=== PATIENT | female | born 1970 | race Caucasian/White ===

== ENCOUNTER 2016-05-07 08:57 | Outpatient (CLI) | payer OTHER ==
[~2016-05-07 08:57] MED LIST: ALEVE220 MG PO; IBUPROFEN600 MG PO; INDOMETHACIN25 MG PO; NEURONTIN300 MG PO; VENLAFAXINE HC100 MG PO
--- NOTE | 2016-05-07 09:54 | DIAGNOSTIC IMAGING REPORT ---
PROCEDURE: XR CHEST 2 VIEW INDICATION: Cough, initial encounter TECHNIQUE: PA and lateral view. COMPARISON: None. FINDINGS: Lungs are clear. Cardiovascular structures are normal. Mild dextroconvex scoliosis with moderate degenerative changes. IMPRESSION: 1. Negative chest.
--- OUTSIDE RECORDS SUMMARY | 2016-05-08 13:02 | External Medical Summary Rpt | CCD ---
Author Author Monique RICK, Luís Harvey Organization Unknown Address Unknown Phone Unavailable Care Team Providers Care Building Construction Inspector Name Role Phone Christie Adams PCP Unavailable Christie Adams Unavailable Unavailable Allergies, Adverse Reactions, Alerts Substance Reaction Severity Status Substance Type Unknown Medications Medicatio Instructi Dosage Effective Status Comments n ons Dates (start - stop) No Drug Therapy Prescribed Problems Condition Effective Dates Clinical Status (start - stop) Impingement syndrome of left shoulder Procedures Procedure Date Pre Op Visit Results Test Date Measure Units Referen Abnorma Comment Name and ce l Flag s Time Range Unknown Advance Directives Directive Yes / No Effective Date File Name Unknown Encounters Encoun Practi Locati Reason Diagno Date Provid Care ter ce on (s) [facility] er Team Descri For Member ption Visit s [facility] LT Imping Jalen Referr e e Should ement -2016 r [facility] er Pre syndro Stephe Provid Op me of n. 328 er: Clinic Orthop (chief left S Christie s, [address]abiera Yaw S compla er [address] CORINA, Dewayne int) h [address], [address], [facility], [facility], [facility], [facility], [address]. [place], [place], [place], [address] tel:[phone] tel:+[phone] tel:[phone] Family History Family Member Diagnosis Age At Onset Status Unknown Immunizations Vaccine Date Status Comments Unknown Payers Payer name Insurance type Covered green party Authorization(s ID ) [facility] [id number] Care Healthy Options Social History Type Description Quantity Date Captured Alcohol Use No Details Caffeine Use energy drinks 2 cups per day Details Tobacco Use Occasional Status cigarette smoker Smoking Status Current some day smoker Vital Signs Alfredito Hei Elmer BMI Pul Blo Tem Res Bod Hea BMI e / ght ght se od per pir y d Rat Pre atu mary jo Heather Cir per Smith e ssu re ry fac cum latonya e: re Rat e bonny til e Are enc e a e Apr 61. 297 56. 68 118 -12 00 .00 12 /mi /72 -20 in kg/ n 17/ lbs met mm[ 08: er( Hg] 24: 2) 00 Chief Complaint And Reason For Visit Most recent encounter only, dated '05/07/2016 08:10'. LT Shoulder Pre Op (chief complaint) Reason For Referral Reason For Referral surgery Plan Of Care Date Type Action Status Appointment ARELY Del Angel LT [facility]/ RC Appointment REUBEN Del AngelED Bere LT [facility]/ RC Date Type Problem Goal Interve Status Start ntion Date Unknown. History Of Present Illness Encounter Date Complaint History Of Present Illness LT Shoulder Pre Op Functional Status Encounter Date Functional Assessment Cognitive Assessment Unknown Medications Administered Medicatio Instructi Dosage Effective Status Comments n ons Dates (start - stop) No Drug Therapy Prescribed Instructions Date Instruction Additional Information Unknown
--- OUTSIDE RECORDS SUMMARY | 2016-05-08 13:02 | External Medical Summary Rpt | CCD ---
Author Author Monique RICK, Luís Harvey Organization Unknown Address Unknown Phone Unavailable Care Team Providers Care Kettle Fry Cook Operator Name Role Phone Christie Adams PCP Unavailable [...] Date Provid Care ter ce on (s) [facility] er Team Descri For Member ption Visit s [facility] LT Imping Jalen Referr e e Should ement -2016 r [facility] er Pre syndro Stephe Provid Op me of n. 328 er: Clinic Orthop (chief left S Christie s, [address] should Jabiera Yaw S compla er guamis CORINA, Dewayne int) h [address], [address], [facility], [facility], [facility], [facility], [address]. [place], [place], [place], [address] tel:[phone] tel:[phone] tel:[phone] Family History Family Member Diagnosis Age At Onset Status Unknown Immunizations Vaccine Date Status Comments Unknown Payers Payer name Insurance type Covered green party Authorization(s ID ) [facility] [id number] Care Healthy Options Social History Type Description [...]
== END 2016-05-07 23:00 | disposition home or self-care (01) ==
LOC: RT SRH 08:57 → LAB SRH 08:57 → RT SRH 09:00
DX: Z01.810 Encounter for preprocedural cardiovascular examination (principal); Z01.811 Encounter for preprocedural respiratory examination; Z01.812 Encounter for preprocedural laboratory examination; M19.012 Primary osteoarthritis, left shoulder
CPT/HCPCS: 90004; 90074; 90100; 95059

== ENCOUNTER 2016-05-12 08:10 | Day surgery (SDC) | payer OTHER ==
--- NOTE | 2016-05-07 09:15 | HISTORY AND PHYSICAL ---
ADMITTED: 05/12/2016 CHIEF COMPLAINT: 1. Left shoulder pain. HISTORY OF PRESENT ILLNESS: The patient has had chronic pain in her shoulder for a number of years. She had previous surgery on both shoulders with good result on the right, but has had recurrence of her pain on the left side and has a rotator cuff tear and is being admitted for repair of the rotator cuff tear, left shoulder arthroscopy and also she has some arthritis at her distal clavicle and we are planning for a distal clavicle resection. She had the nature of the surgery, where the incisions would be, what bone would be removed, how we would do the repair all explained to her today. I explained the risk of failure, infection, of problems with healing, of stiffness and pain, anesthesia complications to her, and she understands and accepts and would like to proceed with the surgery. I also counseled her, she is a smoker, that all those complications are more likely if she smokes and if she could quit, that would certainly be to her advantage and she understands that as well. MEDICAL/SURGICAL HISTORY: Her past history is positive, she suffers from bipolar disorder. She has also had hepatitis and has depression and anxiety as well. She has had previous surgery for both shoulders and she has also had a tumor removed from her breast. The patient lists no current medication. She did have an abscess along the left chest wall when I saw her previously and she had been given Bactrim-DS to take and she has completed a course of the antibiotics for a week and that problem has now resolved. MEDICATIONS: 1. ALLERGIES: 1. SOCIAL HISTORY: Positive as noted above that she is a smoker and she has been counseled on stopping smoking. FAMILY HISTORY: Noncontributory, although she does have a family history of colon cancer, but it should not affect us with the current surgery. REVIEW OF SYSTEMS: Other than the shoulder is negative and she has not had any cough, congestion, fever, chills, chest pain, shortness of breath, nausea, vomiting, diarrhea or dysuria and has no other musculoskeletal complaints at this time. PHYSICAL EXAMINATION: VITAL SIGNS: Her blood pressure to be 118/72, pulse is 68, her BMI is 56, and she is 297 pounds, height is 61 inches HEENT: Shows her head to be normocephalic, atraumatic. Eyes are clear. Hearing is grossly normal. GENERAL: She is alert and oriented x3. HEAD AND NECK: She has no jugular venous distention. The face is symmetrical and the mouth likewise. CHEST: Symmetrical. HEART: Regular rate and rhythm without murmur. LUNGS: Clear to auscultation. ABDOMEN: Obese. EXTREMITIES: Shoulder exam, will refer to my previous exam but she does have very limited active forward flexion and abduction to 80 degrees only and with some assistance and passive pressure, I can get her up to only 90 degrees in both directions and there is pain at the anterolateral acromion as well as over the AC joint. LAB/IMAGING: The studies have shown her to have a rotator cuff tear as well as some acromioclavicular arthritis and a spur at the anterior margin of the acromion. IMPRESSION: 1. A rotator cuff tear with acromioclavicular arthritis and impingement of the shoulder. PLAN: Will be for surgery as noted above and we will do that next week barring unforeseen complication or problem.
[~2016-05-12] VITALS: Ht 154.9 cm; Wt 136.1 kg
--- NOTE | 2016-05-12 13:28 | Postoperative Progress Note ---
Postop Progress Note Preoperate Diagnosis: RCT, AC arthritis left shoulder Postoperative Diagnosis: Same + labral tear Surgeon: linda Anesthesia: General ETT Findings: Labral tear, AC arthritis, RCT left shoulder Procedure: Left shoulder scope with superior labral debridement and repair. Open distal clavicle resection and repair of RCT with acromioplasty. Complications? No Condition: Stable EBL: <100cc Blood Administered: 0 Specimen(s) removed? Yes Specimen removed/disposition: Distal clavicle and anterolateral acromion. Grafts or Implants? Yes Graft/Implant type: Anchors left shoulder . (See nursing notes for details of grafts/implants)
[2016-05-12] MEDS ORDERED: OXAYDO5 MG PO (13:41)
--- NOTE | 2016-05-12 13:42 | Provider's Discharge Care Plan ---
Problem, Goal, Plan Problem List 1. Rotator cuff (capsule) sprain
--- NOTE | 2016-05-12 13:42 | Provider's Discharge Care Plan ---
Problem, Goal, Plan Problem List 1. Rotator cuff (capsule) sprain
[2016-05-12] MEDS ORDERED: ZOFRAN ODT4 MG PO (14:26)
--- NOTE | 2016-05-12 15:41 | DIAGNOSTIC IMAGING REPORT ---
PROCEDURE: XR SHOULDER 2 OR MORE VW-LEFT INDICATION: Post op TECHNIQUE: Three views. COMPARISON: Left shoulder x-ray 07/10/2015 FINDINGS: Interval resection of the distal left clavicle with soft tissue postsurgical changes superior to the AC joint. Single orthopedic anchor projects from the humeral head with three additional anchors projecting over the glenoid. No fracture dislocation. IMPRESSION: 1. Normal left shoulder postsurgical changes
[2016-05-12 16:21] VITALS: BP 135/78
--- NOTE | 2016-05-12 16:40 | OPERATIVE REPORT ---
DATE OF SURGERY: 05/12/2016 SURGEON: AMARJIT TAMAYO MD PREOPERATIVE DIAGNOSES: 1. Partial rotator cuff tear 2. Possible labral tear 3. Acromioclavicular arthritis of the left shoulder POSTOPERATIVE DIAGNOSES: 1. Rotator cuff tear 2. Labral tear 3. Acromioclavicular arthritis of the left shoulder PROCEDURES PERFORMED: 1. Operation proposed is left shoulder arthroscopy, probable open repair of the rotator cuff and distal clavicle resection, acromioplasty, and the operation performed was left shoulder arthroscopy 2. Debridement 3. Labral repair 4. Open acromioplasty 5. Distal clavicle resection 6. Repair of rotator cuff tear ESTIMATED BLOOD LOSS: Less than 100 mL, probably closer to 50 mL. COMPLICATIONS: None. PATHOLOGY SPECIMEN: None. CONDITION: The patient arrived in the recovery room in stable condition. SURGICAL TECHNIQUE: The patient was taken to the operating room. She was given a general anesthetic. She was placed in a semi-sitting position on the operating table with the back support, and the arm and shoulder were prepped and draped in the usual sterile fashion. We then made a small incision posteriorly, put the scope into the joint , and visualized the joint. You could see immediately that she had a fairly large tear of the superior labrum, extending from about the 1 o'clock position posterosuperiorly, around to the 10 o'clock position, more anterosuperiorly. That was debrided along the margins. The articular surfaces were actually in good condition. The biceps tendon was in good condition. Otherwise, the joint looked good, other than she had some fraying of the rotator cuff insertion that could be seen. So we debrided the margins of the glenoid and the labrum, put in 2 anchors, 3.5 mm diameter screw-in anchors. I had to put a third one in later anteriorly, but I put one just directly superiorly and another 1 anterosuperiorly, threaded the limbs of the sutures through the labrum and tied them down. With this, we had a good secure repair. I did just a little bit further debridement and then moved the scope out and made an open incision superiorly, carried down through subcutaneous tissue. We split the deltoid in line with its fibers from a point about 2 cm lateral to the lateral edge of the acromion, maybe 1.5 cm but no more than 2 cm, and then extending medially over the AC joint. We exposed the distal clavicle, resected 1 cm of bone from the distal clavicle slightly obliquely, leaving more bone superiorly than inferiorly, and then rounding and smoothing the margins with a rongeur. I then did an acromioplasty, removing the anteroinferior aspect of the anterolateral acromion, and then using a rasp to smooth the undersurface of the acromion and expose the rotator cuff. She had just a small, maybe 2 to 3 mm area of full-thickness defect, but there was a large area, about 2 cm in diameter, near the insertion of the anterior portion of the supraspinatus that was all frayed and hamburgered. So I put 5.5 mm suture anchor in the greater tuberosity, brought out the sutures through the rotator cuff, and needed to repair and tied down the rotator cuff attachment. We then tied the deltoid back to the acromion through bone, using the same suture, and then oversewed with the same suture the deltoid defect. We then closed that major incision with 2-0 Vicryl running subcutaneous suture, 3-0 Vicryl running subcuticular suture, and then closed the arthroscopy incision just with simple interrupted 3- 0 Vicryl subcuticular sutures. She was injected into the subacromial space with about 25 to 30 mL of 0.5% Marcaine, dressed with Xeroform and ABD pads. These were taped securely in place. She was placed in an arm sling and awakened, moved onto the [place] and taken to the recovery room. She is in stable condition.
== END 2016-05-12 16:33 | disposition home or self-care (01) ==
LOC: OR SRH 08:10 → SCU SRH 08:12 → OR SRH 09:45
PROVIDERS: Orthopaedic Surgery
PROC: 0RBK4ZZ Excision of Left Shoulder Joint, Percutaneous Endoscopic Approach (ICD-10-PCS; principal; 2016-05-12 09:45)
PROC: 0MM24ZZ Reattachment of Left Shoulder Bursa and Ligament, Percutaneous Endoscopic Approach (ICD-10-PCS; principal; 2016-05-12 09:45)
PROC: 0LM20ZZ Reattachment of Left Shoulder Tendon, Open Approach (ICD-10-PCS; principal; 2016-05-12 09:45)
DX: M75.122 Complete rotator cuff tear or rupture of left shoulder, not specified as traumatic (principal); S43.432A Superior glenoid labrum lesion of left shoulder, initial encounter; M13.812 Other specified arthritis, left shoulder; Z72.0 Tobacco use

== ENCOUNTER 2016-06-11 11:27 | Outpatient (CLI) | payer OTHER ==
[~2016-06-11 11:27] MED LIST changes: +OXAYDO5 MG PO; +ZOFRAN ODT4 MG PO
--- NOTE | 2016-06-11 14:34 | DIAGNOSTIC IMAGING REPORT ---
PROCEDURE: XR SHOULDER ARTHROGRAM - LEFT INDICATION: Acute left shoulder pain after re-injury. Recent of rotator cuff repair and labral surgery TECHNIQUE: The patient was advised of the usual risks and complications including infection, bleeding and allergy. Supine LPO position. Following sterile preparation and 1% lidocaine anesthetic, fluoroscopic guidance (4.3 minutes, 1962.44 mGy) was utilized to place a long 22-gauge spinal needle into the ventral left glenohumeral joint (after some difficulty). A 10 mL solution (2.5 mL Isovue 200, 2.5 mL 1% lidocaine, 2.5 mL 0.5% Marcaine, 2.5 mL normal saline) was infused, followed by 1.5 mL 40 mg/mL Kenalog. The needle was withdrawn. COMPARISON: Comparison is made radiographs of the left shoulder on 05/12/2016. FINDINGS: Seven AP views in neutral, internal and external rotation. Confirmation of intraarticular injection. Status post resection of the distal clavicle and acromioclavicular joint. There are three metal surgical anchors in the anterior superior labrum with a solitary metal screw in the lateral humeral head. Arthrogram demonstrates a complete rotator cuff tear with extravasation in the subacromial/subdeltoid bursa. The patient tolerated the procedure reasonably well with moderate discomfort (resolved spontaneously). The patient was transferred to CT in satisfactory condition with instructions to resume routine activity the following day, and to call for any untoward symptoms (increasing pain/swelling). IMPRESSION: 1. Successful fluoroscopically guided diagnostic/therapeutic injection/arthrogram of the left glenohumeral joint (pre CT arthrography). 2. Postoperative changes of the left shoulder (resection of distal clavicle, metal anchors in glenoid and left humeral head). 3. Recurrent full-thickness left rotator cuff tear. 4. CT arthrography is pending.
--- NOTE | 2016-06-11 14:58 | DIAGNOSTIC IMAGING REPORT ---
PROCEDURE: CT UPPER EXT W/CONTRAST- LEFT INDICATION: Left shoulder pain after fall. Recent rotator cuff repair and labral surgery. TECHNIQUE: Intra-articular radiographic contrast injected earlier in the day. Facet noncontrast axial images with sagittal oblique and coronal oblique re-formations. COMPARISON: Comparison is made to conventional arthrogram earlier in the day (06/11/2016) and MR arthrogram of the left shoulder on 12/25/2015. FINDINGS: Status post acromioplasty and resection of the distal left clavicle and acromioclavicular joint. Status post rotator cuff repair (metal surgical anchor in the lateral humeral head. There is moderate generalized thickening and edema of the rotator cuff. In addition, there is a 10 mm full-thickness rotator cuff tear of the ventral rotator cuff associated with moderate fluid the subacromial/subdeltoid bursa. There is moderate coracoid impingement (6 mm). There are postoperative changes with three metal surgical anchors in the anterior superior osseous labrum. Allowing for mild metal artifact there is no evidence of recurrent labral tear. IMPRESSION: 1. Status post acromioplasty and resection of left distal clavicle. 2. Prior rotator cuff repair (metal surgical anchor). 3. Moderate thickening of the rotator cuff consistent with tendinosis or postoperative changes. In addition, there is a 10 mm full-thickness tear of the ventral rotator cuff with extravasation into the subacromial/subdeltoid bursa. 4. Status post left glenoid labral repair (three metal surgical anchors). No evidence of recurrent labral tear.
== END 2016-06-11 23:00 ==
LOC: XR SRH 11:27
PROC: BP0 Imaging, Non-Axial Upper Bones, Plain Radiography (ICD-10-PCS; principal; 2016-06-11)
DX: M75.42 Impingement syndrome of left shoulder (principal); M75.52 Bursitis of left shoulder; Z98.890 Other specified postprocedural states

== ENCOUNTER 2016-08-06 16:18 | Outpatient (CLI) | payer OTHER ==
--- NOTE | 2016-08-06 17:16 | DIAGNOSTIC IMAGING REPORT ---
PROCEDURE: XR CHEST 2 VIEW INDICATION: Preop left rotator cuff surgery. TECHNIQUE: PA and lateral views. COMPARISON: Compared to chest x-ray on 05/07/2016. FINDINGS: There is interim surgery of the left shoulder with two metal surgical anchors in the glenoid, and a single metal surgical anchor in the humeral head. There is moderate caudal subluxation of the left glenohumeral joint. Lungs are clear. Heart and mediastinum are normal. There is a mild dextroscoliosis and moderate degenerative changes of the thoracic spine. IMPRESSION: 1. Interim postoperative changes of the left shoulder. 2. Moderate caudal subluxation of the left glenohumeral joint. 3. Mild dextroscoliosis and moderate degenerative change of the thoracic spine. 4. Otherwise negative chest.
== END 2016-08-06 23:00 ==
LOC: XR SRH 16:18
DX: Z01.818 Encounter for other preprocedural examination (principal); Z01.812 Encounter for preprocedural laboratory examination; S43.002A Unspecified subluxation of left shoulder joint, initial encounter; M47.814 Spondylosis without myelopathy or radiculopathy, thoracic region
CPT/HCPCS: 90004; 90074; 90100; 95059

== ENCOUNTER 2016-08-11 08:11 | Day surgery (SDC) | payer OTHER ==
--- NOTE | 2016-08-06 09:14 | HISTORY AND PHYSICAL ---
ADMITTED: 08/11/2016 CHIEF COMPLAINT: 1. Left shoulder pain. HISTORY OF PRESENT ILLNESS: The patient has had chronic pain in her left shoulder and underwent repair of a rotator cuff tear earlier this year and then unfortunately , she went out shopping, she was doing very well afterwards. Went out shopping, saw someone that was falling, kindly went to try and catch them and unfortunately in the process of catching them, the patient tore out the repair of her rotator cuff and so is back for repeat repair of a recurrent tear of the left rotator cuff. She has had the procedure explained to her in the clearest possible detail and understands risks and benefits including infection, possibility of failure, stiffness, pain and weakness, anesthesia complications and would like to proceed. We will plan to do the surgery then next week barring unforeseen complication or problem. MEDICAL/SURGICAL HISTORY: Positive for bipolar disorder, hepatitis, depression, anxiety. She has had previous surgery for removal of a tumor from her breast and also surgery on both of her shoulders. She had a small spontaneous abscess on the left chest wall, which was treated with Bactrim recently. MEDICATIONS: 1. At present are [place] --------, which she takes on a p.r.n. basis for pain. ALLERGIES: 1. CODEINE. SOCIAL HISTORY: Positive in that she is a smoker. FAMILY HISTORY: Positive for colon cancer, but no history of bleeding disorders or anesthesia complications. REVIEW OF SYSTEMS: Negative. She did have a mild upper respiratory infections she says recently but it passed quickly and currently she is not having any fever, chills , cough, congestion, nausea, vomiting, diarrhea, fainting spells or other problems other than the left shoulder pain. PHYSICAL EXAMINATION: VITAL SIGNS: In the clinic today were height of 61 inches, weight 304 pounds, BMI of 57.4, blood pressure 150/95, pulse 106, respiration of 18, and temperature of 98.4. HEENT: Head normocephalic and atraumatic. Her eyes are clear. Her hearing is grossly normal and she has no drainage from the ear canals. Her face is symmetrical. NECK: Without jugular venous distention. HEART: Regular rate and rhythm without murmur. LUNGS: Clear to auscultation. ABDOMEN: Obese. EXTREMITIES: The left shoulder exam, I will refer you to my previous exams but she has a nicely healed surgical scar superiorly over the shoulder from anterior to posterior and her studies show her to have a failure of the repair of her rotator cuff. IMPRESSION: Recurrent tear of the left rotator cuff. PLAN: For repair of the same.
[~2016-08-11] VITALS: Ht 154.9 cm; Wt 139.6 kg
[2016-08-11] MEDS ORDERED: NORCO1 TA1 PO (08:32)
--- NOTE | 2016-08-11 08:48 | NUR ---
PRE OP INSTRUCTIONS GIVEN AND SAFETY ISSUES DISCUSSED PT HAD QUESTIONS ANSWERED PT CONFIRMED PROCEDURE PT VERIFIED SIGNATURE PT MARKED SITE PT RESTING WANTING TO TAKE A NAP
[2016-08-11] MEDS ORDERED: NORCO1 TAB PO (12:32)
--- NOTE | 2016-08-11 12:34 | Provider's Discharge Care Plan ---
Problem, Goal, Plan Problem List 1. Rotator cuff (capsule) sprain
--- NOTE | 2016-08-11 12:34 | Provider's Discharge Care Plan ---
Problem, Goal, Plan Problem List 1. Rotator cuff (capsule) sprain
--- NOTE | 2016-08-11 12:34 | NUR ---
PT TRANSPORTED TO PACU, REPORT GIVEN TO PACU NURSE. SLING APPLIED AT END OF SURGERY BY SURGEON. LEFT ARM ON PILLOW. PT TRANSPORTED WITH 8L 02 VIA MASK. SD
--- NOTE | 2016-08-11 12:42 | Postoperative Progress Note ---
Postop Progress Note Preoperate Diagnosis: recurrent tear of the left rotator cuff Postoperative Diagnosis: same Surgeon: Luís Amaya MD Anesthesia: General ETT ( Gen. ETT) Findings: Recurrent tear of the left rotator cuff Procedure: Repair of the tear of the left rotator cuff Complications? No Condition: Stable EBL: 100 cc Blood Administered: 0 Specimen(s) removed? No Grafts or Implants? Yes Graft/Implant type: 5.5 mm suture anchor . (See nursing notes for details of grafts/implants)
--- NOTE | 2016-08-11 12:46 | NUR ---
rec'd from OR; SPONT RESP. HOB ELEVATED 30 DEGREES. LT ARM SLING AND ICE ON. CMS=GOOD.
--- NOTE | 2016-08-11 12:57 | Operative Report ---
Operative Report Date of Surgery: 08-11-16 Preoperate Diagnosis: Recurrent tear left rotator cuff Postoperative Diagnosis: same Surgeon: Luís Amaya MD Procedure Performed: Repair of left rotator cuff tear Surgical Technique: This is Juan Amaya dictating the operative report for Bere Del Angel. The preoperative diagnosis is recurrent tear of left rotator cuff postoperative diagnosis is the same. Surgery proposed was open repair of left rotator cuff tear operation performed the same. Operative procedure. The patient was taken to the operating room where she was given a general anesthetic. She was placed in semisitting beach chair position on the operating table in the left arm was prepped and draped in usual sterile fashion.. The same anterior posterior superior incision over the left shoulder was made and later was extended a centimeter posteriorly and another 2 cm anteriorly. The incision was carried down to subcutaneous tissue and then the deltoid muscle was split in line with its fibers at the anterior margin of the acromion starting at the medial edge of the acromion and extending laterally to a point half centimeters lateral to the lateral margin of the acromion. The rotator cuff was inspected and there was found to be a ragged tear at the anterior margin of the supraspinatus tendon as was expected from her preoperative CT arthrogram. The margins of the rotator cuff were released sharply with a curet was used to roughen the surface of the bone and to remove a small prominence that was there. Then another 5.5 mm suture anchor was placed into the bone and the limbs of the suture were routed through the tendon anterior and posterior using a Adan-Shahzad type grasping sutures. The repair was then oversewn with the same FiberWire suture from the anchors and a very nice secure repair was obtained. The deltoid muscle was then repaired with [id number] FiberWire suture, and then oversewn with #1 Polysorb suture. The subcutaneous layer was closed with 2-0 Vicryl running suture and the skin with subcuticular 3-0 Vicryl running suture. She was injected with a small quantity of half percent bupivacaine and then dressed with Xeroform and ABD pads. The dressing was secured in place with paper tape and she was placed in an arm sling and awakened and taken to recovery room in stable condition. The estimated blood loss was 100 cc. Complications were none. Specimens sent to lab were none as well.
--- NOTE | 2016-08-11 12:57 | NUR ---
FENTANYL GIVEN AND PT CONTINUES TO REPORT 8/10 OP SITE PAIN.
--- NOTE | 2016-08-11 13:08 | NUR ---
HERE TO TALK TO PT RE FINDINGS. ASKING IF SHE CAN STRAIGHTEN HER LT ARM. HE SAID YES. PAIN LEVEL IS NOW 4/10.
[2016-08-11] MEDS ORDERED: OXAYDO5 MG PO (13:14)
--- NOTE | 2016-08-11 13:17 | NUR ---
REPORTS PAIN TO BE 3-4/10. SMILING AND MAKING JOKES. XRAY HERE FOR POST OP PICS.
--- NOTE | 2016-08-11 13:24 | NUR ---
ASKING IF SHE CAN TAKE A NAP; PAIN LEVEL 3/10; DB INSTRUCTED.SLING AND ICE INSITU.
--- NOTE | 2016-08-11 14:06 | DIAGNOSTIC IMAGING REPORT ---
PROCEDURE: XR SHOULDER 2 OR MORE VW-LEFT INDICATION: Post op TECHNIQUE: Four views COMPARISON: Left shoulder x-ray 05/12/2016. FINDINGS: Interval placement of an additional screw projecting over the humeral head. There are two screws overlying the humeral head and 3 screws overlying the glenoid. Resection of the distal left clavicle. Overlying soft tissue surgical changes. No fracture or dislocation. IMPRESSION: 1. Left shoulder postsurgical changes.
--- NOTE | 2016-08-11 14:06 | NUR ---
PT RETURNED FROM PACU LEFT ARM IN SLING ICE TO SHOULDER DRESSING DRY AND INTACT PT UP TO BR VOIDED SPONTANOUSLY STATED SHOULDER DOESN'T HURT VERY BAD
--- NOTE | 2016-08-11 14:48 | NUR ---
PT ASKING FOR PAIN MED. THIS WAS GIVEN AFTER SOME FOOD ASKING HOW LONG SHE HAS TO STAY. WANTING TO GO HOME
[2016-08-11 15:12] VITALS: BP 112/71
--- NOTE | 2016-08-11 15:13 | NUR ---
REVIEWED DISCHARGE INSTRUCTIONS VERBAL AND WRITTEN PT AND SISTER EXPRESSED UNDERSTANDING PT STATED WHAT TO DO WITH DRESSING PT DISCHARGED PER WC ACCOMPANIED BY SISTER
== END 2016-08-11 15:18 | disposition home or self-care (01) ==
LOC: OR SRH 08:11 → SCU SRH 08:11 → OR SRH 10:00
PROVIDERS: Orthopaedic Surgery
PROC: 0LM20ZZ Reattachment of Left Shoulder Tendon, Open Approach (ICD-10-PCS; principal; 2016-08-11 10:00)
DX: S46.012A Strain of muscle(s) and tendon(s) of the rotator cuff of left shoulder, initial encounter (principal); X58.XXXA Exposure to other specified factors, initial encounter; Z72.0 Tobacco use